=== PATIENT | female | born 1930 | race Caucasian/White ===

== ENCOUNTER → 2017-06-30 | Outpatient (CLI) | payer OTHER ==
[~2017-06-30] MED LIST: ACET325 PO; ACET325S PR; ALBU.083IS IH; ALBU3IS INH; ALBU90OI; ALBU90OI INH; ALBU90OI6 INH; ALBU90OI61 INH; AMLO10 PO; AMOCLA875 PO; ASPI325 PO; ASPI81CH PO; ASPI81EC PO; ATOR10 PO; Aspir 8181 MG PO; BISA10S; BISA10S PR; BUDE10.22 IH; BUDE6HFA INH; CALC.25 PO; CENTRUM SILVER1 EAC3; CENTRUM SILVER1 EAC3 PO; CHOL10002 PO; CODGUAEL PO; DOCU100 PO; DULERA 100 MCG/13 GM; DULERA 100 MCG/13 GM INH; Diabetic Tussi118 ML PO; FAMO20 PO; FENT50TP; FERR325 PO; FERROUS GLUCONATE PO; FLUO20 PO; FURO20 PO; FURO40; FURO40 PO; FURO80 PO; Ferosul325 MG PO; GAVILAX17 GM PO; HYDACE5325 PO; HYDCHL12.5; HYDR1TAB94 PO; Heparin 5,5000 U/0.5 SC; IBUP400 PO; INS70/30I SS; INS70/30PN SC; INSR10I SUBQ; INSUASPI; INSUASPI SC; INSULANI SC; INSULANI SUBQ; INSULANPEN PO; INSULANPEN SC; INSULIN REGULAR; IPRAIS NEB; IPRAOI; Ipratr-Albuterol3 ML; LAVAP17G; LEVFLO500 PO; LISI20 PO; LISI5 PO; LOSA25 PO; Lipitor20 MG PO; METF500C PO; METO25 PO; METO25ER PO; METO50 PO; MULVITMINA PO; Milk Of Ma400 MG/5 M; Milk Of Ma400 MG/5 M PO; Novolog Fl100 UNIT/1 INJ; OMEP20ER PO; OXYC10ER; Omeprazole20 M1 PO; PRED20 PO; Percocet 5-3251 EACH PO; Prednisone20 MG PO; Prozac20 MG; Prozac20 MG PO; Q-TUSSIN100 MG/5 M; RANI150 PO; ROSI2; SENN187 PO; SIMV10 PO; SIMV40 PO; SPACER IH; Senna8.6 MG; Zithromax250 MG PO; [UNRECOGNIZED DRUG - OTHER] PO
[2017-06-30 15:45] LABS: Source, Urine Clean Catch
[2017-06-30 16:06] LABS: Bilirubin, Urine Neg (Neg); Blood, Urine 2+ (Neg); Color, Urine Yellow (P-Yellow); Glucose Qualitative, Urine 2+ (Neg); Ketones, Urine Neg (Neg); Leukocyte Esterase, Urine Neg (Neg); Nitrite, Urine Neg (Neg); Protein, Urine 1+ (Neg); Urobilinogen, Urine NORM (Normal)
[2017-06-30 16:50] LABS: Appearance, Urine Hazy (Clear)
[2017-06-30 16:52] LABS: Amorphous Light (0-Heavy); Bacteria Few /hpf; Red Blood Cells, Urine 0-2 /hpf (0-2); Squamous Epithelial Cells Many /hpf (Few); White Blood Cells, Urine Not Seen /hpf (0-5)
== END | disposition home or self-care (01) ==
LOC: LAB 15:44
DX: N39.0 Urinary tract infection, site not specified (principal)
CPT/HCPCS: 81001

== ENCOUNTER → 2017-10-13 | Outpatient (CLI) | payer OTHER ==
[2017-10-14 10:30] LABS: Source, Urine Clean Catch
[2017-10-14 10:38] LABS: Bilirubin, Urine Neg (Neg); Blood, Urine Neg (Neg); Glucose Qualitative, Urine Neg (Neg); Ketones, Urine Neg (Neg); Leukocyte Esterase, Urine 1+ (Neg); Nitrite, Urine Neg (Neg); Protein, Urine Neg (Neg); Specific Gravity, Urine 1.015 (1.003-1.022); Urobilinogen, Urine NORM (Normal)
[2017-10-14 11:08] LABS: Appearance, Urine Hazy (Clear); Color, Urine Yellow (P-Yellow)
[2017-10-14 11:09] LABS: Triple Phosphate Crystals Few /hpf; Uric Acid Crystals Mod /hpf
[2017-10-14 11:10] LABS: Bacteria Few /hpf; Red Blood Cells, Urine 0-2 /hpf (0-2); Squamous Epithelial Cells Mod /hpf (Few)
== END | disposition home or self-care (01) ==
LOC: LAB SHORT 18:30 → LAB 18:30
DX: N39.0 Urinary tract infection, site not specified (principal)
CPT/HCPCS: 81001; 87086

== ENCOUNTER 2018-05-05 13:27 | Emergency (ER) | payer OTHER ==
[~2018-05-05] VITALS: Ht 162.6 cm; Wt 90.7 kg
[2018-05-05] MEDS ORDERED: ALLO100 PO (13:51)
[2018-05-05] MEDS ORDERED: ATOR10 PO (13:51)
[2018-05-05] MEDS ORDERED: ASPI81CH PO (13:51)
[2018-05-05] MEDS ORDERED: Ferrous Sulfat325 M2 PO (13:52)
[2018-05-05] MEDS ORDERED: Calcitriol0.25 MCG PO (13:52)
[2018-05-05] MEDS ORDERED: Prozac20 MG PO (13:53)
[2018-05-05] MEDS ORDERED: FURO40 PO ×2 (13:53→13:56)
[2018-05-05] MEDS ORDERED: METO25ER PO (13:54)
[2018-05-05] MEDS ORDERED: LEVFLO500 PO (13:54)
[2018-05-05] MEDS ORDERED: TOUJEO SOL300 UNIT/1 SC (13:55)
[2018-05-05] MEDS ORDERED: SENN187 PO (13:55)
[2018-05-05] MEDS ORDERED: TIOT18 INH (13:55)
[2018-05-05] MEDS ORDERED: DULERA 100 MCG/13 GM INH (13:56)
[2018-05-05] MEDS ORDERED: Humalog100 UNIT/1 SC ×2 (13:57→14:00)
[2018-05-05] MEDS ORDERED: BENZ100A PO (13:57)
[2018-05-05] MEDS ORDERED: ACID REDUCER 1150 MG PO (13:57)
[2018-05-05] MEDS ORDERED: GUAIFENESIN-CODE5 ML PO (14:01)
== END 2018-05-05 16:00 | disposition home or self-care (01) ==
LOC: ER 13:27
DX: J40 Bronchitis, not specified as acute or chronic (principal); K21.9 Gastro-esophageal reflux disease without esophagitis; E11.9 Type 2 diabetes mellitus without complications; Z86.73 Personal history of transient ischemic attack (TIA), and cerebral infarction without residual deficits; Z87.891 Personal history of nicotine dependence; Z88.8 Allergy status to other drugs, medicaments and biological substances; Z79.899 Other long term (current) drug therapy; Z79.82 Long term (current) use of aspirin; Z79.4 Long term (current) use of insulin
CPT/HCPCS: 71045; 99283-25

== ENCOUNTER → 2018-06-08 | Outpatient (CLI) | payer OTHER ==
[~2018-06-08] MED LIST changes: +ACID REDUCER 1150 MG PO; +ALLO100 PO; +BENZ100A PO; +Calcitriol0.25 MCG PO; +Ferrous Sulfat325 M2 PO; +GUAIFENESIN-CODE5 ML PO; +Humalog100 UNIT/1 SC; +TIOT18 INH; +TOUJEO SOL300 UNIT/1 SC
[2018-06-09 09:55] LABS: Source, Urine Clean Catch
[2018-06-09 10:07] LABS: Appearance, Urine Clear (Clear); Bilirubin, Urine Neg (Neg); Blood, Urine Neg (Neg); Color, Urine Yellow (P-Yellow); Glucose Qualitative, Urine Neg (Neg); Ketones, Urine Neg (Neg); Leukocyte Esterase, Urine 1+ (Neg); Nitrite, Urine Neg (Neg); Protein, Urine 2+ (Neg); Specific Gravity, Urine 1.015 (1.003-1.022); Urobilinogen, Urine NORM (Normal)
[2018-06-09 10:40] LABS: Squamous Epithelial Cells Many /hpf (Few)
[2018-06-09 10:41] LABS: Red Blood Cells, Urine Not Seen /hpf (0-2)
[2018-06-09 10:44] LABS: White Blood Cells, Urine Rare /hpf (0-5)
[2018-06-09 10:46] LABS: Bacteria Few /hpf
== END | disposition home or self-care (01) ==
LOC: LAB 09:53 → LAB SHORT 09:53
DX: N39.0 Urinary tract infection, site not specified (principal)
CPT/HCPCS: 81001; 87086

== ENCOUNTER → 2018-07-24 | Outpatient (CLI) | payer OTHER ==
[2018-07-24 16:38] LABS: Source, Urine Clean Catch
[2018-07-24 16:45] LABS: Appearance, Urine Hazy (Clear); Bilirubin, Urine Neg (Neg); Blood, Urine Neg (Neg); Color, Urine Yellow (P-Yellow); Glucose Qualitative, Urine Neg (Neg); Ketones, Urine Neg (Neg); Leukocyte Esterase, Urine 1+ (Neg); Nitrite, Urine Neg (Neg); Protein, Urine 2+ (Neg); Specific Gravity, Urine 1.015 (1.003-1.022); Urobilinogen, Urine NORM (Normal)
[2018-07-24 16:56] LABS: Bacteria Few /hpf; Red Blood Cells, Urine Not Seen /hpf (0-2); Squamous Epithelial Cells Few /hpf (Few); White Blood Cells, Urine 0-2 /hpf (0-5)
== END | disposition home or self-care (01) ==
LOC: LAB 14:00 → LAB SHORT 14:00
DX: N39.0 Urinary tract infection, site not specified (principal)
CPT/HCPCS: 81001; 87086

== ENCOUNTER → 2019-03-15 | Outpatient (CLI) | payer OTHER ==
[~2019-03-15] MED LIST changes: +BUME2 PO; +MUCUS ER600 M1 PO
[2019-03-15 19:25] LABS: Bilirubin, Urine Neg (Neg); Blood, Urine Neg (Neg); Glucose Qualitative, Urine Neg (Neg); Ketones, Urine Neg (Neg); Leukocyte Esterase, Urine Neg (Neg); Nitrite, Urine Neg (Neg); Protein, Urine Neg (Neg); Urobilinogen, Urine NORM (Normal)
[2019-03-15 19:41] LABS: Appearance, Urine Clear (Clear); Color, Urine Yellow (P-Yellow)
== END | disposition home or self-care (01) ==
LOC: LAB 18:41 → LAB SHORT 18:41
DX: N39.0 Urinary tract infection, site not specified (principal)
CPT/HCPCS: 81003

== ENCOUNTER → 2019-08-11 | Outpatient (CLI) | payer OTHER ==
[2019-08-11 11:59] LABS: Magnesium, Blood 2.4 mg/dL (1.6-2.4); Potassium, Blood 3.5 mmol/L (3.5-5.5)
== END | disposition home or self-care (01) ==
LOC: LAB 11:45 → LAB SHORT 11:45
PROVIDERS: Internal Medicine Nephrology
DX: E87.6 Hypokalemia (principal); E83.42 Hypomagnesemia
CPT/HCPCS: 83735; 84132

== ENCOUNTER → 2020-01-06 | Outpatient (CLI) | payer OTHER ==
[2020-01-06 19:39] LABS: Albumin, Blood 2.9 g/dL (3.4-5.0); Anion Gap 9 mmol/L (6-16); Blood Urea Nitrogen 46 mg/dL (8-24); Bun/Creatinine Ratio 30.9 (12.0-20.0); CO2, Blood 29 mmol/L (21-32); Calcium, Blood 8.3 mg/dL (8.5-10.1); Chloride, Blood 101 mmol/L (98-108); Creatinine, Blood 1.49 mg/dL (0.40-1.00); Glomerular Filtration Rate 35 (60-); Glucose, Blood 234 mg/dL (70-99); Phosphorus, Blood 2.6 mg/dL (2.5-4.9); Potassium, Blood 3.6 mmol/L (3.5-5.5); Sodium, Blood 139 mmol/L (136-145)
== END | disposition home or self-care (01) ==
LOC: LAB 17:40 → LAB SHORT 17:40
PROVIDERS: Internal Medicine Nephrology
DX: N18.3 Chronic kidney disease, stage 3 (moderate) (principal); D63.1 Anemia in chronic kidney disease
CPT/HCPCS: 80069

== ENCOUNTER → 2020-01-28 | Outpatient (CLI) | payer OTHER ==
[2020-01-28 13:29] LABS: Source, Urine Clean Catch
[2020-01-28 15:05] LABS: Appearance, Urine Turbid (Clear); Bilirubin, Urine Neg (Neg); Blood, Urine 3+ (Neg); Color, Urine Yellow (P-Yellow); Glucose Qualitative, Urine Neg (Neg); Ketones, Urine Neg (Neg); Leukocyte Esterase, Urine 3+ (Neg); Nitrite, Urine Neg (Neg); Protein, Urine 2+ (Neg); Specific Gravity, Urine 1.015 (1.003-1.022); Urobilinogen, Urine NORM (Normal)
[2020-01-28 15:15] LABS: Bacteria Many /hpf; Red Blood Cells, Urine TNTC /hpf (0-2); Squamous Epithelial Cells Few /hpf (Few); White Blood Cells, Urine TNTC /hpf (0-5)
== END ==
LOC: LAB SHORT 11:45 → LAB 11:45
PROVIDERS: Internal Medicine
DX: N39.0 Urinary tract infection, site not specified (principal)
CPT/HCPCS: 81001; 87077; 87086; 87186

== ENCOUNTER → 2020-03-23 | Outpatient (CLI) | payer OTHER ==
[2020-03-23 10:47] LABS: Albumin, Blood 2.8 g/dL (3.4-5.0); Anion Gap 5 mmol/L (6-16); Blood Urea Nitrogen 29 mg/dL (8-24); CO2, Blood 30 mmol/L (21-32); Calcium, Blood 8.2 mg/dL (8.5-10.1); Chloride, Blood 106 mmol/L (98-108); Creatinine, Blood 1.26 mg/dL (0.40-1.00); Glomerular Filtration Rate 42 (60-); Glucose, Blood 201 mg/dL (70-99); Phosphorus, Blood 3.1 mg/dL (2.5-4.9); Potassium, Blood 3.7 mmol/L (3.5-5.5); Sodium, Blood 141 mmol/L (136-145)
== END | disposition home or self-care (01) ==
LOC: LAB 10:15
PROVIDERS: Internal Medicine Nephrology
DX: N18.30 Chronic kidney disease, stage 3 unspecified (principal); D63.1 Anemia in chronic kidney disease
CPT/HCPCS: 80069

== ENCOUNTER → 2020-05-16 | Outpatient (CLI) | payer OTHER ==
[2020-05-16 14:42] LABS: Anion Gap 17 mmol/L (6-16); Blood Urea Nitrogen 35 mg/dL (8-24); CO2, Blood 16 mmol/L (21-32); Calcium, Blood 8.5 mg/dL (8.5-10.1); Chloride, Blood 105 mmol/L (98-108); Creatinine, Blood 1.06 mg/dL (0.40-1.00); Glomerular Filtration Rate 52 (60-); Glucose, Blood 250 mg/dL (70-99); Phosphorus, Blood 2.7 mg/dL (2.5-4.9); Potassium, Blood 4.2 mmol/L (3.5-5.5); Sodium, Blood 138 mmol/L (136-145)
== END | disposition home or self-care (01) ==
LOC: LAB SHORT 11:00 → LAB 11:00
PROVIDERS: Internal Medicine Nephrology
DX: N18.9 Chronic kidney disease, unspecified (principal); D63.1 Anemia in chronic kidney disease
CPT/HCPCS: 80069; 85018